=== PATIENT | female | born 1985 | race Caucasian/White ===

== ENCOUNTER 2016-12-17 16:09 | Inpatient (IN) | payer OTHER ==
[2016-12-17] VITALS (8 sets, daily range): BP systolic 126–142; BP diastolic 77–86; PULSE 78–85; RESP 18; TEMP 97.6–98.1
[~2016-12-17] VITALS: Ht 175.3 cm; Wt 124.3 kg
[2016-12-17] MEDS ORDERED: SODIUM CHLOR 0.9% 1000 ML INJ 1,000 ML OTHER PRN (17:35)
[2016-12-17] MEDS ORDERED: LACTATED RINGER'S 1000 ML INJ 1,000 ML IV PRN (17:35)
[2016-12-17] MEDS ORDERED: LACTATED RINGER'S 1000 ML INJ 1,000 ML IV SCH (17:35)
[2016-12-17] MEDS ORDERED: LIDOCAINE HCL 1% 50 ML VIAL I-DERMAL PRN (17:45)
[2016-12-17] MEDS ORDERED: OXYTOCIN 30 UNITS-500ML PREMIX 500 ML IV ONE (17:45)
[2016-12-17] MEDS ORDERED: SODIUM CHLORID 0.9% 500 ML INJ 500 ML IV PRN (17:45)
[2016-12-17] MEDS ORDERED: LIDOCAINE HCL 1% 50 ML VIAL INFIL PRN (17:45)
[2016-12-17] MEDS ORDERED: DINOPROSTONE 10 MG VAG INSERT VAGINAL ONE (17:45)
[2016-12-17] MEDS ORDERED: MINERAL OIL 10 ML VIAL TOPICAL PRN (17:45)
[2016-12-17] MEDS ORDERED: ONDANSETRON HCL 4 MG/2 ML VIAL IV PRN (17:45)
[2016-12-17] MEDS ORDERED: CITRIC ACID-SODIUM CITRATE LIQ 30 ML UDC PO SCH (17:45)
[2016-12-17] MEDS ORDERED: SODIUM CHLOR 0.9% 1000 ML INJ 1,000 ML IV PRN (17:55)
[2016-12-17 18:12] LABS: AUTOMATED NEUTROPHIL # 8.2 TH/MM3 (1.8-7.7); BASOPHIL # 0.1 TH/MM3 (0-0.2); BASOPHIL % 0.4 % (0.0-2.0); EOSINOPHIL # 0.2 TH/MM3 (0-0.4); EOSINOPHIL % 1.4 % (0.0-4.0); HEMATOCRIT 32.4 % (35.0-46.0); HEMO FLAGS DIFF FINAL; LYMPH % 23.9 % (9.0-44.0); LYMPHOCYTE # 2.9 TH/MM3 (1.0-4.8); MEAN CELL VOLUME 78.3 FL (80.0-100.0); MEAN CORPUSCULAR HEMOGLOBIN 25.6 PG (27.0-34.0); MEAN CORPUSCULAR HGB CONC 32.7 % (32.0-36.0); NEUT % 67.3 % (16.0-70.0); PLATELET COUNT 324 TH/MM3 (150-450); RED BLOOD COUNT 4.14 MIL/MM3 (4.00-5.30); RED CELL DISTRIBUTION WIDTH 15.2 % (11.6-17.2); WHITE BLOOD COUNT 12.1 TH/MM3 (4.0-11.0)
[2016-12-17 18:30] LABS: BACTERIA, URINE OCC /hpf; BLOOD, URINE NEG (NEG); CALCIUM OXALATE CRYSTALS,URINE OCC /hpf; COMMENT (UR) CULT NOT INDICATED; CULTURE IF INDICATED CULT NOT INDICATED; GLUCOSE,URINE 70 mg/dL (NEG); HYALINE CAST, URINE 1 /lpf (RARE); KETONE, URINE NEG (NEG); MUCUS URINE FEW /lpf (OCC); NITRITE,URINE NEG (NEG); PH, URINE 6.5 (5.0-8.5); SQUAMOUS EPITHELIAL CELL URINE 21 /hpf (0-5); URINE COLOR YELLOW (YELLW/STRAW)
[2016-12-17 18:48] LABS: ALKALINE PHOSPHATASE 139 U/L (45-117); ALT (GPT) 59 U/L (10-53); ANION GAP 10 MEQ/L (5-15); AST (GOT) 36 U/L (15-37); BICARBONATE 22.2 MEQ/L (21.0-32.0); BLOOD UREA NITROGEN 7 MG/DL (7-18); CHLORIDE 106 MEQ/L (98-107); GLOMERULAR FILTRATION RATE 105 ML/MIN (>89); POTASSIUM 3.7 MEQ/L (3.5-5.1); SODIUM (NA) 138 MEQ/L (136-145); TOTAL BILIRUBIN ADULT 0.2 MG/DL (0.2-1.0); URIC ACID 3.5 MG/DL (2.6-6.0)
[2016-12-18] VITALS (75 sets, daily range): BP systolic 99–141; BP diastolic 44–120; PULSE 70–233; RESP 18; TEMP 97.2–98.9
[2016-12-18] MEDS ORDERED: OXYTOCIN 30 UNITS-500ML PREMIX 500 ML IV SCH ×2 (07:15→08:45)
--- NOTE | 2016-12-18 08:40 | PD.LABORPN ---
Subjective Subjective starting to feel cramping. Objective Vital Signs Vital Signs Date Time Temp Pulse Resp B/P Pulse Ox O2 Delivery O2 Flow Rate FiO2 12/18/16 07:30 97.2 18 12/18/16 07:16 90 109/66 12/18/16 04:00 97.6 72 18 113/68 Objective Pelvic Exam: 2-3/50/-3, arom, min fluid. Cephalic. Uterine Contractions: IRREG FHT's: Category:I, 140, +accel, mod variability, no decel Assessment/Plan Assessment and Plan 31 yo with iup at 40w4 here for iol at term, sent in by Dr. Holliday 1) iol- cervidil overnight, found in bed this morning. AROM this check, pitocin started now. Aware induction can be a long process 2) Patti Zeng MD Dec 18, 2016 08:40
[2016-12-18] MEDS ORDERED: fentaNYL 2MCG-BUPIV 0.125% INJ 100 ML ONE (12:53)
[2016-12-18] MEDS ORDERED: ePHEDrine/NS 25 MG/5 ML SYR ONE (13:05)
[2016-12-18] MEDS ORDERED: DIPHTH/TETANUS/ACEL PERTUSSIS (BOOSTER) 0.5 ML VIAL/PFS IM ONE (16:00)
[2016-12-18] MEDS ORDERED: NO SYSTEM NARCOTICS XX PRN (16:00)
[2016-12-18] MEDS ORDERED: fentaNYL 2MCG-BUPIV 0.125% INJ 100 ML EPIDURAL SCH (16:00)
[2016-12-18] MEDS ORDERED: ePHEDrine/NS 50 MG/5 ML SYR IV PRN (16:00)
[2016-12-18] MEDS ORDERED: DO NOT ADMINISTER ANTICOAGULANTS XX PRN (16:00)
[2016-12-18] MEDS ORDERED: MEASLES, MUMPS, RUBELLA VACCINE 0.5 ML VIAL SQ ONE (16:00)
--- NOTE | 2016-12-18 18:46 | PD.OB.DELI ---
Anesthesia: Epidural Episiotomy: None Vaginal Delivery: Normal Presentation: Occiput anterior Infant: Female One Minute : 8 Five Minute : 9 Weight: 8-10 Care: Suctioned Placenta: Spontaneous delivery Laceration: 2 deg Repair: Chrompaul harrington, Vicryl Yaquelin Land MD Dec 18, 2016 18:46
[2016-12-18] MEDS ORDERED: ZOLPIDEM TARTRATE 5 MG TAB PO PRN (19:00)
[2016-12-18] MEDS ORDERED: WITCH HAZEL 50%/GLYCERIN 12.5% 40 PAD JAR TOPICAL PRN (19:00)
[2016-12-18] MEDS ORDERED: ONDANSETRON ODT 4 MG TAB PO PRN (19:00)
[2016-12-18] MEDS ORDERED: ALUMINUM/MAGNESIUM/SIMETH 30 ML CUP PO PRN (19:00)
[2016-12-18] MEDS ORDERED: SODIUM CHLORIDE 0.9% FLUSH 5 ML FLUSH IV PRN (19:00)
[2016-12-18] MEDS ORDERED: DOCUSATE SODIUM 50 MG/SENNA 8.6 MG TAB PO PRN (19:00)
[2016-12-18] MEDS ORDERED: ACETAMINOPHEN 325 MG TAB PO PRN (19:00)
[2016-12-18] MEDS ORDERED: BENZOCAINE 20% TOPICAL SPRAY 60 ML CAN TOPICAL PRN (19:00)
[2016-12-18] MEDS ORDERED: OXYTOCIN 30 UNITS-500ML PREMIX 500 ML IV ONE (19:00)
[2016-12-18] MEDS ORDERED: SODIUM CHLORIDE 0.9% FLUSH 5 ML FLUSH IV SCH (21:00)
[2016-12-18] MEDS: IBUPROFEN 600 MG TAB PO PRN (22:19)
[2016-12-19] MEDS: IBUPROFEN 600 MG TAB PO PRN ×2 (08:16→19:29)
[2016-12-19 08:23] VITALS: BP 154/82; PULSE 104; RESP 17; TEMP 98.3
--- NOTE | 2016-12-19 10:10 | HHI.OB ---
Subjective Post Day: 1 Remarks doing well, Objective Vitals/I&O Vital Signs Date Time Temp Pulse Resp B/P Pulse Ox O2 Delivery O2 Flow Rate FiO2 12/19/16 08:23 98.3 17 12/19/16 08:23 104 154/82 12/18/16 22:00 97.9 12/18/16 22:00 76 18 141/84 12/18/16 20:15 127/66 12/18/16 20:15 122 12/18/16 20:14 98.9 18 12/18/16 20:00 134/95 12/18/16 19:49 18 12/18/16 19:45 18 12/18/16 19:45 126 121/70 12/18/16 19:30 125 134/69 12/18/16 19:27 18 12/18/16 19:15 135 127/77 12/18/16 19:06 98.8 12/18/16 19:03 133 18 132/82 12/18/16 18:45 18 12/18/16 18:30 196 129/120 12/18/16 18:00 143 122/74 12/18/16 17:45 135 12/18/16 17:40 139 12/18/16 17:35 120 12/18/16 17:31 128 105/74 12/18/16 17:30 132 12/18/16 17:25 121 12/18/16 17:20 120 12/18/16 17:15 119 12/18/16 17:10 118 12/18/16 17:05 116 12/18/16 17:00 114 115/63 12/18/16 16:55 105 12/18/16 16:50 106 12/18/16 16:45 98.1 12/18/16 16:45 94 12/18/16 16:40 93 12/18/16 16:38 18 12/18/16 16:35 100 12/18/16 16:30 92 12/18/16 16:30 98 137/75 12/18/16 16:25 94 12/18/16 16:20 99 12/18/16 16:15 91 12/18/16 16:10 87 12/18/16 16:05 86 12/18/16 16:00 91 12/18/16 16:00 129/67 12/18/16 15:55 88 12/18/16 15:50 87 12/18/16 15:45 94 12/18/16 15:40 88 12/18/16 15:35 97 12/18/16 15:30 86 121/76 12/18/16 15:25 97 12/18/16 15:20 104 12/18/16 15:15 83 125/80 12/18/16 15:13 233 130/96 12/18/16 15:10 90 12/18/16 15:07 95 102/44 12/18/16 15:05 93 12/18/16 15:00 99/56 12/18/16 15:00 119 12/18/16 14:40 88 12/18/16 14:35 89 12/18/16 14:30 92 108/62 12/18/16 14:10 103 12/18/16 14:05 100 113/52 12/18/16 14:00 101 120/63 12/18/16 13:55 92 127/67 12/18/16 13:50 95 123/67 12/18/16 13:45 97 129/63 12/18/16 13:40 98 123/71 12/18/16 13:35 98 114/73 12/18/16 13:30 91 12/18/16 13:29 94 136/79 12/18/16 13:28 88 141/75 12/18/16 12:53 20 12/18/16 11:21 70 131/74 12/18/16 10:42 82 128/74 12/18/16 10:42 97.9 Objective Remarks GENERAL: Well-nourished, well-developed patient. CARDIOVASCULAR: Regular rate and rhythm without murmurs, gallops, or rubs. RESPIRATORY: Breath sounds equal bilaterally. No accessory muscle use. ABDOMEN/GI: Abdomen soft, non-tender. Fundus: Firm, non-tender at umbilicus. GENITOURINARY: Light to moderate bleeding. EXTREMITIES: No cyanosis or edema, non-tender, without signs of DVT. Medications and IVs Current Medications Medications (Trade) Dose Ordered Sig/Dionne Route Start Time Stop Time Status Last Admin (NS Flush) 2 ml BID IV 12/18/16 21:00 (NS Flush) 2 ml UNSCH PRN IV 12/18/16 19:00 (Tylenol) 650 mg Q4H PRN PO 12/18/16 19:00 (Motrin) 600 mg Q6H PRN PO 12/18/16 19:00 12/19/16 08:16 (Americaine 20% Top Spr) 1 spray Q4H PRN TOPICAL 12/18/16 19:00 12/18/16 22:19 (Tucks Pads) 1 applic QID PRN TOPICAL 12/18/16 19:00 12/18/16 22:19 (Aura-Colace) 2 tab Q12H PRN PO 12/18/16 19:00 12/19/16 08:16 (Ambien) 5 mg HS PRN PO 12/18/16 19:00 (Mag-Al Plus Susp Liq) 15 ml Q8H PRN PO 12/18/16 19:00 (Zofran Odt) 4 mg Q6H PRN PO 12/18/16 19:00 Assessment/Plan Problem List: (1) state, incidental (2) Vaginal delivery Assessment and Plan s/p , PPD #1 routine pp care Discharge Planning routine Attending Attestation pt seen by Yaquelin Luz MD Dec 19, 2016 10:10
[2016-12-19 15:00] VITALS: BP 123/79; PULSE 83; RESP 18; TEMP 97.8
--- NOTE | 2016-12-19 16:23 | HHI.DCPOC ---
Discharge Care Plan Your Health Problems Are: Pelvic pain Report Symptoms to Your Doctor -Temperate above 100.5 degrees -Redness, of incision or excessive or foul smelling drainage -Unusual pain or calf pain -Increased vaginal bleeding -Painful or difficulty urinating -Feelings of extreme sadness or anxiety after 2 weeks Goals to Promote Your Health * To prevent worsening of your condition and complications * To maintain your health at the optimal level Directions to Meet Your Goals Take your medications as prescribed Follow your dietary instruction Follow activity as directed Ensure plenty of rest for recovery Drink fluids for hydration Keep your appointments as scheduled Take your immunizations and boosters as scheduled If your symptoms worsen call your PCP, if no PCP go to Urgent Care Center or Emergency Room Smoking is Dangerous to Your Health. Avoid second hand smoke Call the 24-hour crisis hotline for domestic abuse at Yaquelin Holliday MD Dec 19, 2016 16:23
[2016-12-19 23:00] VITALS: BP 129/84; PULSE 76; RESP 18; TEMP 97.8
[2016-12-20] MEDS: IBUPROFEN 600 MG TAB PO PRN ×2 (03:32→09:26)
[2016-12-20 08:00] VITALS: BP 128/84; PULSE 72; RESP 18; TEMP 97.9
--- NOTE | 2016-12-20 10:52 | HHI.OB ---
Subjective Post Day: 2 Remarks doing well, Objective Vitals/I&O Vital Signs Date Time Temp Pulse Resp B/P Pulse Ox O2 Delivery O2 Flow Rate FiO2 12/20/16 08:00 72 128/84 12/20/16 08:00 97.9 18 12/19/16 23:00 129/84 12/19/16 23:00 97.8 76 18 12/19/16 15:00 97.8 12/19/16 15:00 83 18 123/79 Objective Remarks GENERAL: Well-nourished, well-developed patient. CARDIOVASCULAR: Regular rate and rhythm without murmurs, gallops, or rubs. RESPIRATORY: Breath sounds equal bilaterally. No accessory muscle use. ABDOMEN/GI: Abdomen soft, non-tender. Fundus: Firm, non-tender at umbilicus. GENITOURINARY: Light to moderate bleeding. EXTREMITIES: No cyanosis or edema, non-tender, without signs of DVT. Medications and IVs Current Medications Medications (Trade) Dose Ordered Sig/Dionne Route Start Time Stop Time Status Last Admin (NS Flush) 2 ml BID IV 12/18/16 21:00 (NS Flush) 2 ml UNSCH PRN IV 12/18/16 19:00 (Tylenol) 650 mg Q4H PRN PO 12/18/16 19:00 (Motrin) 600 mg Q6H PRN PO 12/18/16 19:00 12/20/16 09:26 (Americaine 20% Top Spr) 1 spray Q4H PRN TOPICAL 12/18/16 19:00 12/18/16 22:19 (Tucks Pads) 1 applic QID PRN TOPICAL 12/18/16 19:00 12/18/16 22:19 (Aura-Colace) 2 tab Q12H PRN PO 12/18/16 19:00 12/19/16 08:16 (Ambien) 5 mg HS PRN PO 12/18/16 19:00 (Mag-Al Plus Susp Liq) 15 ml Q8H PRN PO 12/18/16 19:00 (Zofran Odt) 4 mg Q6H PRN PO 12/18/16 19:00 Assessment/Plan Problem List: (1) state, incidental (2) Vaginal delivery Assessment and Plan s/p , PPD #2 routine pp care Discharge Planning routine Attending Attestation pt seen by me Yaquelin Holliday MD Dec 20, 2016 10:52
[2016-12-20] MEDS ORDERED: IBUP-232 PO (10:53)
== END 2016-12-20 12:34 | disposition home or self-care (01) | DRG 775 ==
LOC: H2EB 16:09 → H1EA 12-18 21:42
PROVIDERS: ADMIT Obstetrics & Gynecology; ATTEND Obstetrics & Gynecology
PROC: 0KQM0ZZ Repair Perineum Muscle, Open Approach (ICD-10-PCS; principal; 2016-12-18)
PROC: 10E0XZZ Delivery of Products of Conception, External Approach (ICD-10-PCS; 2016-12-18)
PROC: 3E0R3CZ (ICD-10-PCS; 2016-12-18)
PROC: 00HU33Z Insertion of Infusion Device into Spinal Canal, Percutaneous Approach (ICD-10-PCS; 2016-12-18)
PROC: 3E033VJ Introduction of Other Hormone into Peripheral Vein, Percutaneous Approach (ICD-10-PCS; 2016-12-18)
DX: O70.1 Second degree perineal laceration during delivery (principal); Z37.0 Single live birth; Z3A.40 40 weeks gestation of pregnancy
CPT/HCPCS: 59025; 80053; 81001; 84550; 85025; 86900; 86901; J2405; J2590; J3010; J7120